=== PATIENT | female | born 1950 | race Caucasian/White ===

== ENCOUNTER → 2021-11-24 | Outpatient (CLI) | payer MEDICARE, BC ==
[~2021-11-24] MED LIST: ADV250INH INH; ALEV220C2 PO; AMLO10TA2 PO; CALC600T21 PO; CETI10TA3 PO; FLUT50SP; KETO0.02 OU; MAPA500T17 PO; NEUR300C PO; NEXI1CAP3 PO; SERT-141 PO; SOMA350T PO; SYNT88TA2 PO; Singular PO; TOLTERODINE PO; ULTR50TA PO; VITACAP31 PO; singular PO
== END ==
LOC: M SOG 08:13
PROVIDERS: ATTEND Orthopaedic Surgery Adult Reconstructive Orthopaedic Surgery
DX: M17.0 Bilateral primary osteoarthritis of knee (principal)